=== PATIENT | female | born 1980 | race African-American/Black ===

== ENCOUNTER 2017-09-28 06:44 | Inpatient (IN) | payer OTHER ==
[~2017-09-28] VITALS: Ht 182.9 cm; Wt 128.2 kg
[~2017-09-28 06:44] MED LIST: AMOXICILLIN500 M1 PO; ATENOLOL50 MG PO; AUGMENTIN500 MG PO; CIPRO500 MG PO; DARVOCET-N 1001 EACH PO; ENDOCET 5-3251 EACH PO; FLAGYL500 MG PO; FLEXERIL10 MG PO; HYDROCHLOROTH12.5 M3 PO; HYDROCHLOROTHIA25 MG PO; LASIX20 MG PO; LORTAB 5-325 M1 EACH PO; LYRICA100 MG PO; MOBIC7.5 MG PO; MOTRIN600 MG PO; MOTRIN800 MG PO; NEURONTIN300 MG PO; NOHOMEMEDS; OXYCODONE-APAP1 EACH PO; OXYCONTIN10 MG PO; PERCOCET 7.51 TABLET PO; PRILOSEC OTC20 MG PO; VALIUM10 MG PO; ZANAFLEX2 MG PO; ZOFRAN ODT8 MG PO
[2017-09-28 08:56] LABS: BASOPHIL (%) 0.3 % (0-1); EOSINOPHIL (%) 0 % (0-5); HEMATOCRIT 41.9 % (36.0-46.0); HEMOGLOBIN 14.3 G/DL (11.9-15.5); IMMATURE GRANULOCYTE (%) 0.3 % (0.0-0.7); LYMPHOCYTE (%) 16.6 % (15-42); LYMPHOCYTE COUNT 1.3 K/uL (1.0-2.8); MCH 29.2 PG (29.0-34.0); MCHC 34.1 G/DL (30.0-36.0); MCV 85.7 FL (83-99); MONOCYTE COUNT 0.6 K/uL (0-0.8); NEUTROPHIL (%) 75.8 % (45-76); NEUTROPHIL COUNT 6.1 K/uL (1.8-6.4); PLATELET COUNT 336 K/uL (156-360); RBC DIS.WIDTH-CV 12.8 % (11.8-14.6); RED BLOOD COUNT 4.89 M/uL (3.80-5.20)
[2017-09-28 09:04] LABS: ALBUMIN 4.2 g/dL (3.2-4.8); CHLORIDE 99 mEq/L (99-109); POTASSIUM 3.1 mEq/L (3.7-5.4)
[2017-09-28 09:05] LABS: SODIUM 134 mEq/L (136-147)
[2017-09-28 09:07] LABS: GLUCOSE 102 mg/dL (70-99)
[2017-09-28 09:09] LABS: TOTAL BILIRUBIN 0.7 mg/dL (0.0-1.0)
[2017-09-28 09:10] LABS: ALKALINE PHOSPHATASE 55 IU/L (3-129); CREATININE 0.7 mg/dL (0.6-1.3); GFR ESTIMATE (CALCULATED) > 59 mL/min/
[2017-09-28 09:12] LABS: AST (GOT) 19 IU/L (2-34); UREA NITROGEN (BUN) 12 mg/dL (9-23)
[2017-09-28 09:13] LABS: ALT (GPT) 17 IU/L (3-49)
[2017-09-28 13:39] LABS: APPEARANCE CLEAR ((CLEAR)); BILIRUBIN NEGATIVE; BLOOD NEGATIVE; COLOR YELLOW ((YELLOW)); GLUCOSE (STRIP) NEGATIVE; KETONES 80; LEUKOCYTES NEGATIVE; NITRITE NEGATIVE; PROTEIN (STRIP) 100; SPECIFIC GRAVITY 1.025 (1.000-1.030); UROBILINOGEN 0.2 MG/DL (0.2-1.0)
[2017-09-28 13:57] LABS: UCUL ADDED? NO
[2017-09-28 16:15] VITALS: BP 188/104
[2017-09-29 03:44] VITALS: BP 185/115
[2017-09-29 06:24] LABS: CHLORIDE 100 MEQ/L (99-109); CREATININE 0.6 MG/DL (0.6-1.3); GFR ESTIMATE (CALCULATED) > 59 mL/min/; GLUCOSE 93 mg/dL (70-99); POTASSIUM 3.5 MEQ/L (3.7-5.4); SODIUM 137 MEQ/L (136-147); UREA NITROGEN (BUN) 15 mg/dL (9-23)
[2017-09-29 07:41] VITALS: BP 182/105
[2017-09-29 11:45] VITALS: BP 145/84
[2017-09-29 11:59] VITALS: BP 182/115
[2017-09-29 15:34] VITALS: BP 169/96
[2017-09-29 20:17] VITALS: BP 120/62
[2017-09-30] VITALS (7 sets, daily range): BP systolic 113–202; BP diastolic 62–105
[2017-10-01 00:15] VITALS: BP 189/107
[2017-10-01 08:15] VITALS: BP 181/97
[2017-10-01 12:41] VITALS: BP 135/73
[2017-10-01 15:22] VITALS: BP 125/79
[2017-10-01 19:55] VITALS: BP 121/74
[2017-10-02 00:33] VITALS: BP 126/74
[2017-10-02 01:51] LABS: CHLORIDE 104 mEq/L (99-109); POTASSIUM 3.6 mEq/L (3.7-5.4); SODIUM 135 mEq/L (136-147)
[2017-10-02 01:52] LABS: GLUCOSE 89 mg/dL (70-99)
[2017-10-02 01:56] LABS: CREATININE 0.7 mg/dL (0.6-1.3); GFR ESTIMATE (CALCULATED) > 59 mL/min/
[2017-10-02 01:57] LABS: UREA NITROGEN (BUN) 17 mg/dL (9-23)
[2017-10-02 08:58] VITALS: BP 122/66
[2017-10-02 12:00] VITALS: BP 121/71
[2017-10-02 15:41] VITALS: BP 129/79
[2017-10-02 19:57] VITALS: BP 128/67
[2017-10-03 00:09] VITALS: BP 128/61
[2017-10-03 03:34] VITALS: BP 116/61
[2017-10-03 06:25] LABS: HEMATOCRIT 34.6 % (36.0-46.0); MCH 29.3 PG (29.0-34.0); MCHC 32.9 G/DL (30.0-36.0); MCV 88.9 FL (83-99); PLATELET COUNT 250 K/uL (156-360); RBC DIS.WIDTH-CV 12.7 % (11.8-14.6); RBC DIS.WIDTH-SD 41.2 % (39-53)
[2017-10-03 06:28] LABS: CHLORIDE 108 MEQ/L (99-109); CREATININE 0.6 MG/DL (0.6-1.3); GFR ESTIMATE (CALCULATED) > 59 mL/min/; GLUCOSE 83 mg/dL (70-99); MAGNESIUM 1.6 mg/dl (1.3-2.7); POTASSIUM 3.9 MEQ/L (3.7-5.4); SODIUM 139 MEQ/L (136-147); UREA NITROGEN (BUN) 13 mg/dL (9-23)
[2017-10-03 06:45] LABS: HEMOGLOBIN 11.4 G/DL (11.9-15.5); RED BLOOD COUNT 3.89 M/uL (3.80-5.20)
[2017-10-03 08:27] VITALS: BP 161/96
[2017-10-03] MEDS ORDERED: PANTOPRAZOLE SO40 MG PO (15:24)
[2017-10-03] MEDS ORDERED: METOCLOPRAMIDE10 MG PO (15:24)
[2017-10-03 15:27] VITALS: BP 162/90
[2017-10-03] MEDS ORDERED: OXYCODONE-APAP1 EACH PO (17:30)
== END 2017-10-03 17:34 | disposition home or self-care (01) | DRG 392 ==
LOC: EME 06:44 → 5WEST 13:22 → EDOF 13:22 → ENRESERV 13:25 → 5WEST 15:27
PROVIDERS: Emergency Medicine; Internal Medicine; Physician Assistant
PROC: 0DB68ZX Excision of Stomach, Via Natural or Artificial Opening Endoscopic, Diagnostic (ICD-10-PCS; principal; 2017-09-28)
DX: K29.70 Gastritis, unspecified, without bleeding (principal); R11.2 Nausea with vomiting, unspecified; R10.9 Unspecified abdominal pain; I16.0 Hypertensive urgency; F17.200 Nicotine dependence, unspecified, uncomplicated; E86.0 Dehydration; E87.6 Hypokalemia; E87.1 Hypo-osmolality and hyponatremia; E86.1 Hypovolemia; K44.9 Diaphragmatic hernia without obstruction or gangrene; M54.5 Low back pain
CPT/HCPCS: 72100; 72148; 74176; 80048; 80053; 81003; 82948; 83735; 84703; 85025; 85027; 87493; 87506; 88305; 88342 TC; 93005; 94640 76; 94760; 94799; 99202; 99281; 99285; G0378; J0360; J1650; J1885; J2270; J2405; J2765; J3010; J3480; J7030; S0028

== ENCOUNTER 2017-12-17 07:38 | Emergency (ER) | payer OTHER ==
[~2017-12-17] VITALS: Ht 182.9 cm; Wt 133.6 kg
[~2017-12-17 07:38] MED LIST changes: +METOCLOPRAMIDE10 MG PO; +PANTOPRAZOLE SO40 MG PO
[2017-12-17 08:54] LABS: BASOPHIL (%) 0.3 % (0-1); EOSINOPHIL (%) 0 % (0-5); HEMATOCRIT 42.3 % (36.0-46.0); HEMOGLOBIN 14.2 G/DL (11.9-15.5); IMMATURE GRANULOCYTE (%) 0.2 % (0.0-0.7); LYMPHOCYTE (%) 20.8 % (15-42); LYMPHOCYTE COUNT 1.2 K/uL (1.0-2.8); MCH 29.2 PG (29.0-34.0); MCHC 33.6 G/DL (30.0-36.0); MONOCYTE (%) 5.6 % (3-12); MONOCYTE COUNT 0.3 K/uL (0-0.8); NEUTROPHIL (%) 73.1 % (45-76); NEUTROPHIL COUNT 4.3 K/uL (1.8-6.4); PLATELET COUNT 305 K/uL (156-360); RBC DIS.WIDTH-CV 12.6 % (11.8-14.6); RBC DIS.WIDTH-SD 40.4 % (39-53); RED BLOOD COUNT 4.86 M/uL (3.80-5.20); WHITE BLOOD COUNT 5.9 K/uL (4.1-10.2)
[2017-12-17 09:03] LABS: CHLORIDE 102 mEq/L (99-109); POTASSIUM 3.8 mEq/L (3.7-5.4); SODIUM 139 mEq/L (136-147)
[2017-12-17 09:04] LABS: ALBUMIN 4.7 g/dL (3.2-4.8)
[2017-12-17 09:06] LABS: GLUCOSE 106 mg/dL (70-99); TOTAL PROTEIN 8.4 g/dL (6.4-8.3)
[2017-12-17 09:08] LABS: TOTAL BILIRUBIN 0.6 mg/dL (0.0-1.0)
[2017-12-17 09:10] LABS: ALKALINE PHOSPHATASE 58 IU/L (3-129); CREATININE 0.8 mg/dL (0.6-1.3); GFR ESTIMATE (CALCULATED) > 59 mL/min/
[2017-12-17 09:11] LABS: AST (GOT) 16 IU/L (2-34); UREA NITROGEN (BUN) 16 mg/dL (9-23)
[2017-12-17 09:13] LABS: ALT (GPT) 16 IU/L (3-49)
[2017-12-17 09:21] LABS: QUANTITATIVE HCG < 4.0 MIU/ML
[2017-12-17 11:12] LABS: APPEARANCE CLEAR ((CLEAR)); BILIRUBIN NEGATIVE; BLOOD SMALL; COLOR YELLOW ((YELLOW)); GLUCOSE (STRIP) 50; KETONES 80; LEUKOCYTES NEGATIVE; NITRITE NEGATIVE; PROTEIN (STRIP) 100; SPECIFIC GRAVITY 1.026 (1.000-1.030); UROBILINOGEN 0.2 MG/DL (0.2-1.0)
[2017-12-17 11:16] LABS: BACTERIA NONE SEEN /HPF; EPITHELIAL CELLS RARE /HPF; MUCUS 2+ /LPF; RED BLOOD CELLS 0-5 /HPF (0-5); UCUL ADDED? NO; WHITE BLOOD CELLS 0-5 /HPF (0-5)
[2017-12-17 14:37] LABS: LIPASE 5 U/L (1.0-51.0)
[2017-12-17] MEDS ORDERED: ATENOLOL50 MG PO (15:33)
[2017-12-17] MEDS ORDERED: MOTRIN800 MG PO (15:33)
[2017-12-17] MEDS ORDERED: ZOFRAN ODT4 MG PO (15:34)
[2017-12-17] MEDS ORDERED: REGLAN10 MG PO (15:34)
[2017-12-17 15:59] VITALS: BP 128/49
== END 2017-12-17 16:01 ==
LOC: EME 07:38
PROVIDERS: Emergency Medicine
DX: R10.30 Lower abdominal pain, unspecified (principal); R11.2 Nausea with vomiting, unspecified; E86.0 Dehydration; I10 Essential (primary) hypertension; E66.01 Morbid (severe) obesity due to excess calories; Z68.39 Body mass index [BMI] 39.0-39.9, adult; F17.200 Nicotine dependence, unspecified, uncomplicated; Z98.51 Tubal ligation status; Z87.19 Personal history of other diseases of the digestive system
CPT/HCPCS: 74177; 80053; 81003; 83690; 83735; 84702; 85025; 99281; 99285; J1630; J1885; J2405; J2765; J7040; J7042; J7120